=== PATIENT | male | born 1995 | race Caucasian/White ===

== ENCOUNTER 2024-12-08 09:14 | Day surgery (SDC) | payer OTHER ==
[~2024-12-08] VITALS: Ht 190.5 cm; Wt 105.6 kg
[~2024-12-08 09:14] MED LIST: OXYM15SP2
[2024-12-08] MEDS ORDERED: NS (Normal Saline) 0.9% 1,000 ML IV SCH ×2 (10:55→13:30)
[2024-12-08] MEDS ORDERED: SUGAMMADEX SODIUM 500 MG/5 ML VIAL (BRIDION) As Ordered ONE (11:06)
[2024-12-08] MEDS ORDERED: fentaNYL 100 MCG/2 ML INJECTION As Ordered ONE (11:06)
[2024-12-08] MEDS ORDERED: MIDAZOLAM INJ 2MG/2ML VIAL As Ordered ONE (11:06)
[2024-12-08] MEDS ORDERED: ROCURONIUM BROMIDE 50MG/5ML VIAL As Ordered ONE (11:07)
[2024-12-08] MEDS ORDERED: LIDOCAINE 2% 100MG/5ML SDV (FOR ANES.) As Ordered ONE (11:07)
[2024-12-08] MEDS ORDERED: propofoL 200 MG/20 ML VIAL As Ordered ONE (11:07)
[2024-12-08] MEDS ORDERED: ONDANSETRON 4MG 2ML VIAL As Ordered ONE (11:07)
[2024-12-08] MEDS ORDERED: ACETAMINOPHEN 1000MG/100ML IV BAG As Ordered ONE (11:07)
[2024-12-08] MEDS ORDERED: OXYMETAZOLINE 0.05% NASAL SPRAY (AFRIN) As Ordered ONE (11:15)
[2024-12-08] MEDS: COCAINE 4% 4ML NASAL SOLUTION BTL As Ordered ONE (12:17)
[2024-12-08] MEDS ORDERED: HYDROmorphone HCL 2MG/ML 1ML VIAL As Ordered ONE (12:38)
[2024-12-08] MEDS: LIDOCAINE W/EPINEPHRINE 1% 20ML VIAL As Ordered ONE (13:00)
[2024-12-08] MEDS ORDERED: fentaNYL 100 MCG/2 ML INJECTION IV PRN (13:30)
[2024-12-08] MEDS ORDERED: HYDROMORPHONE HCL 0.5 MG/ 0.5 ML SYRINGE IV PRN (13:30)
[2024-12-08] MEDS: ONDANSETRON 4MG 2ML VIAL IV PRN (13:56)
[2024-12-08] MEDS: oxyCODONE 5MG TAB PO PRN (14:13)
[2024-12-08] MEDS ORDERED: ANEXSIA, NORCO 7.5MG/325MG TABLET(HYDROCODONE/APAP) PO PRN (14:15)
[2024-12-08] MEDS ORDERED: LR 1,000 ML IV SCH (14:15)
[2024-12-08 15:32] VITALS: BP 132/84; TEMP 96.7; O2SAT 97
== END 2024-12-08 16:00 | disposition home or self-care (01) ==
LOC: M SDC 09:14
PROVIDERS: ATTEND Otolaryngology
DX: J34.2 Deviated nasal septum (principal); J34.3 Hypertrophy of nasal turbinates; F41.9 Anxiety disorder, unspecified; F32.A Depression, unspecified; F43.10 Post-traumatic stress disorder, unspecified; Z79.899 Other long term (current) drug therapy
CPT/HCPCS: 30140; 30520; C9143; J0131; J1100; J1171; J2250; J2405; J3010